=== PATIENT | female | born 1965 | race Caucasian/White ===

== ENCOUNTER → 2017-04-14 | Outpatient (CLI) | payer OTHER ==
[~2017-04-14] MED LIST: ALDA100T PO; ALPR-138 PO; AMBI5TAB PO; CIPR500T4 PO; FLAG500T PO; LORTA5 PO; LOVA20TA PO; SERT100 PO
[2017-04-14 11:03] LABS: FREE T4 0.89 NG/DL (0.76-1.46); LUTEINIZING HORMONE 10.3 mIU/mL
== END ==
LOC: CLAB 09:54
PROVIDERS: ATTEND Family Medicine
DX: E78.2 Mixed hyperlipidemia (principal); I10 Essential (primary) hypertension; R53.83 Other fatigue; L70.9 Acne, unspecified; M54.5 Low back pain; E66.9 Obesity, unspecified
CPT/HCPCS: 36415; 82670; 83001; 83002; 84146; 84270; 84403; 84410; 84439; 84443

== ENCOUNTER → 2017-05-06 | Outpatient (CLI) | payer OTHER ==
[2017-05-06 11:08] LABS: CALCIUM 9.3 MG/DL (8.5-10.1)
== END ==
LOC: CLAB 10:00
PROVIDERS: ATTEND Orthopaedic Surgery Orthopaedic Surgery of the Spine
DX: E55.9 Vitamin D deficiency, unspecified (principal); M81.8 Other osteoporosis without current pathological fracture; M81.0 Age-related osteoporosis without current pathological fracture; M85.9 Disorder of bone density and structure, unspecified
CPT/HCPCS: 36415; 82306; 82310; 84075

== ENCOUNTER → 2017-07-31 | Outpatient (CLI) | payer OTHER ==
[~2017-07-31] MED LIST changes: +ALPR0.25 PO; +BUPR150XL PO; +CYCL5TAB PO; +LAMI250T PO; +ROSU1TAB6 PO
[2017-07-31 09:31] LABS: AUTOMATED NEUTROPHIL # 6.4 TH/MM3 (1.8-7.7); BASOPHIL % 0.5 % (0.0-2.0); EOSINOPHIL # 0.1 TH/MM3 (0-0.4); HEMATOCRIT 44.2 % (35.0-46.0); HEMOGLOBIN 14.9 GM/DL (11.6-15.3); LYMPH % 20.3 % (9.0-44.0); LYMPHOCYTE # 1.8 TH/MM3 (1.0-4.8); MEAN CELL VOLUME 96.7 FL (80.0-100.0); MEAN CORPUSCULAR HEMOGLOBIN 32.7 PG (27.0-34.0); MEAN CORPUSCULAR HGB CONC 33.8 % (32.0-36.0); MEAN PLATELET VOLUME 8.2 FL (7.0-11.0); MONOCYTE # 0.7 TH/MM3 (0-0.9); NEUT % 70.2 % (16.0-70.0); PLATELET COUNT 311 TH/MM3 (150-450); RED BLOOD COUNT 4.57 MIL/MM3 (4.00-5.30); WHITE BLOOD COUNT 9.1 TH/MM3 (4.0-11.0)
[2017-07-31 09:43] LABS: PROTHROMBIN TIME - PATIENT 9.8 SEC (9.8-11.6)
[2017-07-31 09:52] LABS: WESTERGREN SEDIMENTATION RATE 4 mm/hr (0-20)
[2017-07-31 10:53] LABS: BACTERIA, URINE RARE /hpf; BLOOD, URINE NEG (NEG); GLUCOSE,URINE NEG (NEG); KETONE, URINE TRACE mg/dL (NEG); MUCUS URINE MOD /lpf (OCC); NITRITE,URINE NEG (NEG); SQUAMOUS EPITHELIAL CELL URINE 2 /hpf (0-5); URINE COLOR Amber (YELLW/STRAW); URINE LEUKOCYTE ESTERASE NEG (NEG)
[2017-07-31 10:58] LABS: BILIRUBIN, URINE NEG (NEG)
[2017-07-31 11:16] LABS: ALBUMIN 4.1 GM/DL (3.4-5.0); AST (GOT) 25 U/L (15-37); BICARBONATE 24.1 MEQ/L (21.0-32.0); BLOOD UREA NITROGEN 10 MG/DL (7-18); CALCIUM 9.2 MG/DL (8.5-10.1); CHLORIDE 107 MEQ/L (98-107); CREATININE 0.95 MG/DL (0.50-1.00); GLOMERULAR FILTRATION RATE 62 ML/MIN (>89); GLUCOSE,FASTING 67 MG/DL (74-99); SODIUM (NA) 141 MEQ/L (136-145)
[2017-07-31 11:24] LABS: ALKALINE PHOSPHATASE 53 U/L (45-117); ALT (GPT) 37 U/L (10-53); TOTAL BILIRUBIN ADULT 0.3 MG/DL (0.2-1.0); TOTAL PROTEIN 7.4 GM/DL (6.4-8.2)
--- NOTE | 2017-07-31 12:12 | RADRPT ---
EXAM DATE: 07/31/2017 11:34 AM EDT AGE/SEX: 51 years / Female INDICATIONS: Evaluate for pneumothorax, pneumonia, or other communicable disease. Pre-op Right hip r eplacement. CLINICAL DATA: This is the patient's initial encounter. Patient reports that signs and symptoms have been present for 1 day and indicates a pain score of 0/10. MEDICAL/SURGICAL HISTORY: None. None. COMPARISON: No prior exams available for comparison. FINDINGS: PA and lateral views of the chest demonstrates a mild focal changes in the left lung base. Otherwise, the lungs are clear and well aerated. There are no pleural effusions or pulmonary edema.. The cardio mediastinal contours are unremarkable. Osseous structures are intact. CONCLUSION: Focal mild parenchymal changes are noted in the left lung base. This could represent either some atel ectasis versus scarring. There are no prior studies for comparison. Otherwise, I see no significant o r acute pulmonary infiltrates. If clinically indicated, a noncontrast CT thorax could be performed fo r further evaluation. Electronically signed by: David Elena MD 07/31/2017 12:11 PM EDT
--- NOTE | 2017-07-31 12:26 | EKG ---
Date Performed: 07/31/2017 Time Performed: 09:22:12 PTAGE: 51 years EKG: Sinus rhythm NORMAL ECG NO PREVIOUS TRACING DOCTOR: Juan Pablo Ascencio Interpretating Date/Time 07/31/2017 12:24:43
== END ==
LOC: CPRE 09:00
PROVIDERS: ATTEND Orthopaedic Surgery Sports Medicine
DX: Z01.812 Encounter for preprocedural laboratory examination (principal); Z01.810 Encounter for preprocedural cardiovascular examination; Z01.811 Encounter for preprocedural respiratory examination; M16.11 Unilateral primary osteoarthritis, right hip; M25.50 Pain in unspecified joint; Z79.01 Long term (current) use of anticoagulants; Z96.60 Presence of unspecified orthopedic joint implant
CPT/HCPCS: 36415; 71046; 80053; 81001; 85025; 85610; 85652; 85730; 93005

== ENCOUNTER 2017-08-17 06:53 | Inpatient (IN) ==
[2017-08-17] MEDS ORDERED: ceFAZolin 2 GM Premix Inj 2 GM/50 ML PIGGYBACK IV.SIG ONE (08:10)
[2017-08-17] MEDS ORDERED: Vancomycin Inj 1 GM/200 ML PIGGYBACK IV.SIG ONE (08:10)
[2017-08-17] MEDS ORDERED: Dexamethasone Inj 20 MG/5 ML Vial ONE (08:10)
[2017-08-17] MEDS ORDERED: Bisacodyl 10 MG Supp RECTAL PRN (08:32)
[2017-08-17] MEDS ORDERED: Post-op Orders (for Pharmacy) OTHER STA (08:32)
[2017-08-17] MEDS ORDERED: ALPRAZolam 0.25 MG Tablet PO PRN (08:32)
[2017-08-17] MEDS ORDERED: Chlorhexidine Gluconate 2% 1 Pack (2 Cloths) TOPICAL SCH (08:45)
[2017-08-17] MEDS ORDERED: Metoprolol Tartrate 25 MG Tablet PO SCH (08:45)
[2017-08-17] MEDS ORDERED: Sodium Chlor 0.9% Inj 500 ML IV.SIG SCH (09:00)
[2017-08-17] MEDS ORDERED: Dexamethasone Inj 20 MG/5 ML Vial IV.PUSH SCH (09:01)
[2017-08-17] MEDS ORDERED: Tranexamic Acid Inj 3,000 MG in Sodium Chlor 0.9% Inj 100 ML P-ARTICULR ONE (09:12)
[2017-08-17] MEDS ORDERED: Dexamethasone Inj 20 MG/5 ML Vial IV.PUSH ONE (09:14)
[2017-08-17] MEDS ORDERED: Chlorhexidine 4% Topical 120 APPLIC/120 ML Bottle TOPICAL SCH ×2 (09:15)
[2017-08-17] MEDS ORDERED: Sodium Chlor 0.9% Inj 40 ML, Bupivacaine Liposo PF 1.3% Inj 20 ML P-ARTICULR SCH ×4 (09:15)
--- NOTE | 2017-08-17 09:27 | P.CON ---
History of Present Illness Primary Care Provider: Cristiana Robles MD Family Provider: Cristiana Robles MD Chief Complaint: Right hip pain History of Present Illness: This is a 51-year-old female who complains of right hip pain secondary to osteoarthritis. She is scheduled for operative intervention by Dr. Gustabo Lux who requested consultation to evaluate and manage medical conditions and postoperative care. Patient has history of hyperlipidemia currently controlled on Crestor, anxiety and depression manage on Xanax and Wellbutrin and toenail infection on antifungal. She takes Aldactone for acne no history of hypertension. Also denies history of diabetes mellitus recent A1c 5.5. Preop evaluation is unremarkable including normal liver function tests. Hemoglobin of 14.9 platelet count of 211 creatinine 0.95 INR 1 and chest x-ray showing focal parenchymal disease in the left lower lung likely atelectasis versus scarring. Patient has no respiratory symptoms, fever and chills. EKG tracing also reviewed with sinus rhythm. Review of Systems All other systems reviewed negative except as stated in HPI PMFSH - History History Provided By: Patient - Medical History Medical History: Medical History (Last Updated 08/04/17 @ 07:55 by Niyah Gordon RN) Anxiety Depression High cholesterol Toenail fungus Wears glasses - Surgical History Surgical History: Surgical History (Last Updated 08/04/17 @ 07:54 by Niyah Gordon RN) History of facelift Hx of abdominoplasty Hx of cholecystectomy - Family History Family History: Family History (Last Updated 08/17/17 @ 17:31 by Delano Ruvalcaba MD) Other Medical history non-contributory - Tobacco History Second Hand Smoke Exposure: No Smoking Status: Former smoker Tobacco Type: Cigarettes - Alcohol History How Often Do You Have a Drink Containing Alcohol: 2 to 3 times a week - Substance Use History Substance History: No History of Abuse - Travel History Recent Travel in the [place] Within the Last 8 Weeks: No Recent Travel Out of the Country Within the Last 8 Weeks: No Medications and Allergies Active Medications: Active Medications Hydrocodone Bitart/Acetaminophen ([place] 7.5/325) 1 tab PO Q4H PRN PRN Reason: PAIN LESS THAN 5 ON SCALE Hydrocodone Bitart/Acetaminophen ([place] 7.5/325) 2 tab PO Q6H PRN PRN Reason: PAIN SCALE 5 TO 10 Al Hydroxide/Mg Hydroxide (Milk Of Magnesia Liq) 30 ml PO BID PRN PRN Reason: Mild Constipation Alprazolam (Xanax) 0.25 mg PO Q6H PRN PRN Reason: Anxiety Aspirin (Aspirin Chew) 81 mg PO BID [facility] Bisacodyl (Dulcolax Supp) 10 mg RECTAL DAILY PRN PRN Reason: SEVERE CONSITIPATION Bupropion HCl (Wellbutrin Xl) 150 mg PO DAILY [facility] Chlorhexidine Gluconate (Chlorhexidine 2% Cloth) 3 pack TOPICAL [place] [facility] Stop: 08/20/17 08:43 Chlorhexidine Gluconate (Hibiclens 4% Topical) 1 applicatio TOPICAL ONCE [facility] Stop: 08/21/17 09:14 Chlorhexidine Gluconate (Hibiclens 4% Topical) 1 applicatio TOPICAL ONCE [facility] Stop: 08/21/17 09:14 Sodium Chloride 40 ml/ (Bupivacaine Liposome 20 ml) 0 ml P-ARTICULR [place] [facility] Stop: 08/17/17 18:00 Sodium Chloride 40 ml/ (Bupivacaine Liposome 20 ml) 0 ml P-ARTICULR ONCE [facility] Dexamethasone Sodium Phosphate (Decadron Inj) 10 mg IV.PUSH ONCE ONE Stop: 08/17/17 09:02 Dexamethasone Sodium Phosphate (Decadron Inj) 10 mg IV.PUSH ONCE ONE Stop: 08/17/17 09:15 Diphenhydramine HCl (Benadryl) 25 mg PO Q6H PRN PRN Reason: ITCHING Hydromorphone HCl (Dilaudid Pf Inj) 1 mg IV.PUSH Q3H PRN PRN Reason: BREAKTHROUGH PAIN Cefazolin Sodium/Dextrose (Ancef 2 Gm Premix Inj) 2 gm in 50 mls @ 100 mls/hr IV.SIG Q6H [facility] Stop: 08/17/17 21:29 Lactated Ringer's (Lr 1000 Ml Inj) 1,000 mls @ 80 mls/hr IV.CONT .[id number] [facility] Lactated Ringer's (Lr 1000 Ml Inj) 1,000 mls @ 30 mls/hr IV.SIG .Q24H [facility] Stop: 08/20/17 08:43 Last Admin: 08/17/17 08:55 Dose: 30 mls/hr Sodium Chloride (Ns Inj) 500 mls @ 30 mls/hr IV.SIG .Q10H [facility] Stop: 08/20/17 08:43 Cefazolin Sodium/Dextrose (Ancef 2 Gm Premix Inj) 2 gm in 50 mls @ 100 mls/hr IV.SIG [place] [facility] Stop: 08/21/17 09:59 Tranexamic Acid / Sodium (Chloride) 100 mls @ 200 mls/hr IV.SIG ONCE [facility] Stop: 08/18/17 09:59 Vancomycin/Sodium Chloride (Vancomycin Inj) 1 gm in 200 mls @ 200 mls/hr IV.SIG [place] [facility] Stop: 08/21/17 09:59 Cefazolin Sodium/Dextrose (Ancef 2 Gm Premix Inj) 2 gm in 50 mls @ 100 mls/hr IV.SIG [place] [facility] Stop: 08/21/17 09:59 Tranexamic Acid 1,096 mg/ (Sodium Chloride) 110.96 mls @ 200 mls/hr IV.SIG ONCE [facility] Stop: 08/18/17 09:59 Lactulose (Lactulose Liq) 30 ml PO DAILY PRN PRN Reason: SEVERE CONSITIPATION Metoprolol Tartrate (Lopressor) 25 mg PO [place] [facility] Stop: 08/20/17 08:43 Miscellaneous Information (Misc Post-Op Orders (For Pharmacy)) 0 each OTHER STAT STA Stop: 08/17/17 08:33 Multivitamins/Minerals (Theragran-M) 1 tab PO BID [facility] Stop: 10/16/17 08:59 Non-Formulary Medication (Rosuvastatin [Rosuvastatin]) 10 mg PO DAILY [facility] Ondansetron HCl (Zofran Inj) 4 mg IV.PUSH Q6H PRN PRN Reason: NAUSEA OR VOMITING Povidone Iodine (Betadine 5% Antisepsis Kit) 1 applicatio EACH NARE [place] [facility] Stop: 08/20/17 08:43 Povidone Iodine (Betadine 7.5% Scrub) 1 applicatio TOPICAL ONCE [facility] Stop: 08/21/17 09:59 Povidone Iodine (Betadine 7.5% Scrub) 1 applicatio TOPICAL ONCE [facility] Stop: 08/21/17 09:59 Senna/Docusate Sodium (Pily-Colace) 1 tab PO BID [facility] Sennosides (Senokot) 17.2 mg PO BID PRN PRN Reason: Moderate Constipation Sodium Chloride (Ns Flush) 2 ml IV.FLUSH BID [facility] Sodium Chloride (Ns Flush) 2 ml IV.FLUSH PRN PRN PRN Reason: FLUSH AFTER USING IV ACCESS Spironolactone (Aldactone) 100 mg PO DAILY [facility] Terbinafine HCl (Lamisil) 250 mg PO DAILY [facility] Zolpidem Tartrate (Ambien) 5 mg PO HS PRN PRN Reason: INSOMNIA Allergies Allergy/AdvReac Type Severity Reaction Status Date / Time No Known Allergies Allergy Unverified 08/04/17 07:55 Home Medications Medication Instructions Recorded Confirmed Type alprazolam 0.25 mg PO Q6H PRN 08/04/17 08/04/17 History bupropion HCl [Wellbutrin XL] 150 mg PO DAILY 08/04/17 08/04/17 History cyclobenzaprine 5 mg PO TID PRN 08/04/17 08/04/17 History rosuvastatin 10 mg PO DAILY 08/04/17 08/04/17 History spironolactone [Aldactone] 100 mg PO DAILY 08/04/17 08/04/17 History terbinafine HCl 250 mg PO DAILY 08/04/17 08/04/17 History Physical Exam Vital signs: Vital Signs 08/17/17 08:50 Temperature 98.2 F Pulse Rate 94 H Respiratory Rate 18 Blood Pressure 130/88 Intake & Output 08/16/17 08/17/17 08/17/17 18:59 06:59 18:59 Weight 73.1 kg Other: Weight On Admission 73.1 kg Narrative: GENERAL: This is a well-nourished, well-developed patient, in no apparent distress. Skin is warm no rash HEENT normocephalic atraumatic pupils reactive to light Neck no JVD no bruit CARDIOVASCULAR: Regular rate and rhythm without murmurs, gallops, or rubs. RESPIRATORY: Clear to auscultation. Breath sounds equal bilaterally. No wheezes , rales, or rhonchi. GASTROINTESTINAL: Abdomen soft, non-tender, nondistended. Normal active bowel sounds MUSCULOSKELETAL: Extremities without clubbing, cyanosis, or edema. NEURO: Alert & Oriented x4 to person, place, time, situation. Moves all ext x4 - Urinary Catheter Management Indwelling Urethral Catheter Cath placed during this visit: yes Reason for continuing: Hourly intake/output Insertion date: 08/17/17 Insertion time: 09:49 Assessment and Plan - Plan This is a 51-year-old female who complains of right hip pain secondary to osteoarthritis. She is scheduled for operative intervention by Dr. Gustabo Lux who requested consultation to evaluate and manage medical conditions and postoperative care. Orders in the [facility] reviewed. Agree with pain management with Lortab and IV Dilaudid. She will also be on DVT prophylaxis with aspirin and SCD. Wound care, incentive spirometry and PT evaluation Hyperlipidemia currently controlled on Crestor and will be continued Anxiety and depression managed on Xanax and Wellbutrin both already ordered. Toenail infection on antifungal. Monitor LFTs Acne continue Aldactone no history of hypertension. Denies history of diabetes mellitus recent A1c 5.5. Discussed Condition With: Patient and family Discharge Planning: Per orthopedic surgery likely home health care PT
[2017-08-17] MEDS ORDERED: Tranexamic Acid Inj 0 MG in Sodium Chlor 0.9% Inj 100 ML IV.SIG SCH (10:00)
[2017-08-17] MEDS ORDERED: SODIUM CHLOR 0.9% IV.SIG SCH (10:00)
[2017-08-17] MEDS ORDERED: Vancomycin Inj 1 GM/200 ML PIGGYBACK IV.SIG SCH (10:00)
[2017-08-17] MEDS ORDERED: ceFAZolin 2 GM Premix Inj 2 GM/50 ML PIGGYBACK IV.SIG SCH ×2 (10:00)
[2017-08-17] MEDS ORDERED: TRANEXAMIC ACID IV.SIG SCH (10:00)
--- NOTE | 2017-08-17 11:14 | XR ---
EXAM DATE: 08/17/2017 11:12 AM EDT AGE/SEX: 51 years / Female INDICATIONS: Right total hip replacement. CLINICAL DATA: This is the patient's initial encounter. Patient reports that signs and symptoms have been present for 1 day and indicates a pain score of Nonresponsive. MEDICAL/SURGICAL HISTORY: None. None. COMPARISON: No prior exams available for comparison. FINDINGS: The patient is status post a total hip arthroplasty with a bipolar prosthesis. Prosthesis is [place]. Alignment is anatomic in the AP projection. A fracture is not appreciated. CONCLUSION: Anatomic alignment. Hitesh Stevenson MD FACR Electronically signed by: Hitesh Stevenson MD 08/17/2017 11:13 AM EDT
[2017-08-17] MEDS ORDERED: *Meperidine Inj 25 MG/ML Vial PERIprocedural Use ONLY ONE (11:34)
[2017-08-17] MEDS ORDERED: fentaNYL Citrate Inj 100 MCG/2 ML Ampul ONE ×2 (11:35→11:36)
--- NOTE | 2017-08-17 11:43 | MP ---
cc: Gustabo Lux MD DATE OF OPERATION: 08/17/2017 DATE OF PROCEDURE: 08/17/2017. PREOPERATIVE DIAGNOSIS: Right hip osteoarthritis. POSTOPERATIVE DIAGNOSIS: Right hip osteoarthritis. PROCEDURE PERFORMED: Right total hip arthroplasty. SURGEON: Gustabo Lux MD MANUFACTURING QUALITY ENGINEER: KEENAN Avilez. ANESTHESIA: General. ESTIMATED BLOOD LOSS: 200 mL COMPLICATIONS: None. IMPLANTS USED: DePuy Corail size 9 Press-Fit standard offset femoral stem, size 48 solid [place] Gription cup, 32 mm [place] Chrome head, +1 neck. JUSTIFICATION: The patient is a 51-year-old female with history of severe osteoarthritis involving the right hip joint. She has severe, disabling pain with standing, walking, ambulation or weight-bearing activities and severe pain at rest. She has failed greater than three months of nonoperative conservative treatment to include medication therapy, injections, ambulatory assistive aids, home exercise program, activity modification and weight loss. X-rays of the right hip reveal severe end-stage osteoarthritis with joint space narrowing, subchondral sclerosis, subchondral cysts, osteophyte formation and subluxation. The patient was counseled as to the risks, benefits and alternatives to a total hip arthroplasty. The risks which were discussed include but are not limited to anesthesia, bleeding, infection, damage to nerves, blood vessels, pain, stiffness, fracture, dislocation, leg length discrepancy, blood clots, pulmonary embolism and even . The patient's pain is severe. She favored the benefits over the risks. She wished to proceed with surgery. PROCEDURE IN DETAIL: Written consent was obtained. The patient was identified by name, taken to the operating room, and placed supine on the operating table. General anesthesia was administered as well as 2 grams of IV Ancef and 1 gram of IV vancomycin. The right and left feet were placed in padded traction boots. The right hip and right lower extremity prepped and draped using alcohol, Hibiclens solution and ChloraPrep solution. After a timeout was performed, a longitudinal incision was made over the anterolateral aspect of the right hip. The fascial layer was incised. Dissection was carried over tensor fascia flavio, beneath the rectus femoris to allow exposure of the anterior capsule. Capsulotomy incision was performed. Oscillating saw was used to perform a femoral neck cut. The osteophytic femoral head and neck component was removed. Sequential reaming began at size 43, was carried through to size 48. Subsequently, a solid [place] Gription 48 mm cup was implanted in approximately 45 degrees of abduction and 10 degrees of anteversion. There was good purchase and fixation with insertion of the cup. A screw hole eliminator was placed, followed by a neutral liner. The liner was impacted in place and tested for stability. Attention was turned to the femur where the leg was externally rotated extended and adducted. The capsule was released off the superior aspect and inner aspect of the greater trochanter to allow for elevation and lateralization of the femur. A box cutting osteotome was used to gain entrance into the intramedullary canal of the femur and was followed by canal finder and sequential broaching up to size 9. A calcar planer was used to plane the calcar. Trial head and neck combinations were evaluated and the final components implanted. With the current components, the leg could achieve external rotation of 70 degrees and extension all the way down to the ground without evidence of anterior instability or impingement. Fluoroscopic imaging showed appropriate implantation of components. The surgical wound was thoroughly irrigated with sterile saline pulse lavage antibiotic impregnated solution. With final components implanted, the fascial layer was closed with #1 Vicryl suture, the subcutaneous layer with 2-0 Vicryl suture. The skin was closed with Dermabond. Sterile dressing applied. The patient tolerated the procedure with no intraoperative complications noted. Saleem Ogden, physician research assistant certified, was present for the entire procedure to include the patient positioning and the procedure itself. The medical necessity of a physician research assistant was indicated in this case due to complexity of the procedure. He assisted with appropriate manipulation of the leg and retraction of muscle, tendon, bone and neurovascular structures. He assisted with preparation of bone and also implantation of the prosthetic replacement. MD LEIA Amador/ZANE , 11:03 AM , 11:41 AM
[2017-08-17] MEDS ORDERED: *morphine SULFATE 10 MG/ML PERIprocedure ONLY ONE ×2 (11:59→15:24)
[2017-08-17] MEDS ORDERED: Phenylephrine/NS 1000 MCG/10ML Syringe IV.PUSH ONE (12:00)
[2017-08-17] MEDS ORDERED: Neostigmine Inj 5 MG/5 ML Syringe IV.PUSH ONE (12:00)
[2017-08-17] MEDS ORDERED: Lidocaine PF 1% Inj 5 ML Syringe INFILTRATN ONE (12:00)
[2017-08-17] MEDS ORDERED: Glycopyrrolate Inj 1 MG/5 ML Syringe IV.PUSH ONE (12:00)
--- NOTE | 2017-08-17 12:35 | XR ---
EXAM DATE: 08/17/2017 12:33 PM EDT AGE/SEX: 51 years / Female INDICATIONS: Post-op right hip. CLINICAL DATA: This is the patient's subsequent encounter. Patient reports that signs and symptoms h ave been present for 2 days and indicates a pain score of Nonresponsive. MEDICAL/SURGICAL HISTORY: None. . Right Hip Replacement. COMPARISON: No prior exams available for comparison. FINDINGS: Status post placement of a right hip prosthesis. There is good position and alignment of the prosthes is with the bony structures. The hardware is grossly intact. CONCLUSION: Good position and alignment on this postoperative study. Electronically signed by: David Elena MD 08/17/2017 12:34 PM EDT
[2017-08-17] MEDS: Senna/Docusate Sodium 8.6/50 MG Tablet PO SCH ×2 (15:28→21:40)
[2017-08-17] MEDS: Multivitamin/Minerals Therapeutic Tablet PO SCH ×2 (15:29→21:40)
[2017-08-17] MEDS: buPROPion 150 MG 12 HR Tablet PO SCH (15:30)
[2017-08-17] MEDS: ceFAZolin 2 GM Premix Inj 2 GM/50 ML PIGGYBACK IV.SIG SCH ×2 (16:59→22:59)
[2017-08-17] MEDS ORDERED: *Ondansetron Inj 4 MG/2 ML Vial PERIprocedural Use ONLY ONE (17:13)
[2017-08-17] MEDS ORDERED: Zolpidem Tartrate 5 MG Tablet PO PRN (21:00)
[2017-08-18] MEDS: ceFAZolin 2 GM Premix Inj 2 GM/50 ML PIGGYBACK IV.SIG SCH (04:22)
[2017-08-18] MEDS: HYDROmorphone PF Inj 2 MG/ML Vial IV.PUSH PRN ×3 (06:04→20:12)
--- NOTE | 2017-08-18 08:09 | P.PNOP ---
Subjective Interval history: pain slowly improving Physical Exam Vital signs: Vital Signs 08/17/17 08:50 08/17/17 11:21 08/17/17 11:30 Temperature 98.2 F 97.7 F Pulse Rate 94 H 98 H 92 H Respiratory Rate 18 20 16 Blood Pressure 130/88 133/94 H 124/88 Pulse Oximetry 95 96 08/17/17 11:45 08/17/17 12:00 08/17/17 12:15 Temperature Pulse Rate 86 92 H 81 Respiratory Rate 17 18 15 Blood Pressure 142/80 H 135/80 122/77 Pulse Oximetry 97 97 98 08/17/17 12:30 08/17/17 13:00 08/17/17 14:00 Temperature Pulse Rate 87 90 100 H Respiratory Rate 17 16 13 Blood Pressure 124/81 123/79 112/71 Pulse Oximetry 96 98 99 08/17/17 15:00 08/17/17 15:32 08/17/17 16:00 Temperature Pulse Rate 95 H 97 H Respiratory Rate 15 15 18 Blood Pressure 116/79 121/78 Pulse Oximetry 98 98 08/17/17 16:05 08/17/17 17:00 08/17/17 18:00 Temperature 98 F 98.0 F Pulse Rate 100 H 72 Respiratory Rate 20 18 Blood Pressure 120/77 114/67 Pulse Oximetry 99 99 97 08/17/17 18:56 08/17/17 19:18 08/18/17 00:35 Temperature 97.5 F L Pulse Rate 95 H Respiratory Rate 18 18 18 Blood Pressure 119/80 Pulse Oximetry 96 08/18/17 01:19 08/18/17 02:30 08/18/17 06:26 Temperature 97.5 F L 98.0 F Pulse Rate 99 H 87 Respiratory Rate 18 18 18 Blood Pressure 113/71 122/78 Pulse Oximetry 97 96 Intake & Output 08/17/17 08/18/17 08/18/17 18:59 06:59 18:59 Intake Total 300 / 300 410 / 410 Output Total 500 / 500 1475 / 1475 Balance -200 / -200 -1065 / -1065 Weight 73.1 kg 73.1 kg Intake: IV 50 / 50 50 / 50 Ancef 2 GM Premix Inj 2 gm In 50 / 50 50 / 50 50 ml @ 100 mls/hr IV.SIG Q6H [facility] Rx#:[id number] Oral 250 / 250 360 / 360 Output: Urine Amount (Catheter) 500 / 500 1475 / 1475 Indwelling Urethral Catheter 500 / 500 1475 / 1475 Other: Date of Last Bowel Movement 08/17/17 # Bowel Movements 0 Weight On Admission 73.1 kg Narrative: in bed, nad thigh soft dressing c/d/i neg anna nvi - Constitutional no acute distress - Urinary Catheter Management Indwelling Urethral Catheter Cath placed during this visit: yes, but has since been removed by the nurse Reason for continuing: Continue criteria not met Insertion date: 08/17/17 Insertion time: 09:49 Removal date: 08/18/17 Removal time: 06:10 Results - Labs Laboratory Results - last 24 hr 08/17/17 07:50 Blood Type A Negative Blood Type Recheck Required Antibody Screen Negative - Imaging Impressions Hip X-Ray 08/17/17 00:00 CONCLUSION: Anatomic alignment. Hitesh Stevenson MD FACR Hip X-Ray 08/17/17 08:31 CONCLUSION: Good position and alignment on this postoperative study. Assessment and Plan - Ortho Post Op Day # 1 - Assessment and Plan s/p R DELICIA wbat ok to maintain dressing unless saturated asa 81mg bid d/c planning home with [facility] and pt cleared today if does well in PT f/up dr. ricketts 2 weeks
--- NOTE | 2017-08-18 08:10 | P.DCO ---
- Physical Therapy Physical Therapy: Gait training, Safety evaluation Hip: Total hip, Protocol: Right, Progress to weight bearing Right Lower Extremity Weight Bearing: Weight bearing as tolerated - Nursing RN: 3 days/week x 2 weeks Nursing: Dressing changes Dressing changes: Daily dressing change - Certification Need for Home Health services: I have seen patient Humaira Berg on 08/18/17. My clinical findings support the need for the requested home health care services because: Need for Home Health Services: Limited ability to care for self, High risk of falls Homebound Certification: I certify that my clinical findings support that this patient is homebound because: Homebound Certification: Post-op weakness, Unsteady gait/balance
[2017-08-18] MEDS: Senna/Docusate Sodium 8.6/50 MG Tablet PO SCH ×2 (09:07→20:14)
[2017-08-18] MEDS: buPROPion 150 MG 12 HR Tablet PO SCH (09:07)
[2017-08-18] MEDS: Multivitamin/Minerals Therapeutic Tablet PO SCH ×2 (09:08→20:14)
[2017-08-18 09:50] LABS: Hemoglobin 12.7 gm/dL (11.6-15.3)
[2017-08-18 10:09] LABS: Calcium 8.2 mg/dL (8.5-10.1); Carbon Dioxide 30.1 meq/L (21.0-32.0); Potassium 3.8 meq/L (3.5-5.1)
--- NOTE | 2017-08-18 11:08 | P.PN ---
Subjective Interval history: Follow-up hip surgery. Complaining of surgical pain. Has been out of bed already. Tolerating meals. Physical Exam Vital signs: Vital Signs 08/17/17 11:21 08/17/17 11:30 08/17/17 11:45 Temperature 97.7 F Pulse Rate 98 H 92 H 86 Respiratory Rate 20 16 17 Blood Pressure 133/94 H 124/88 142/80 H Pulse Oximetry 95 96 97 08/17/17 12:00 08/17/17 12:15 08/17/17 12:30 Temperature Pulse Rate 92 H 81 87 Respiratory Rate 18 15 17 Blood Pressure 135/80 122/77 124/81 Pulse Oximetry 97 98 96 08/17/17 13:00 08/17/17 14:00 08/17/17 15:00 Temperature Pulse Rate 90 100 H 95 H Respiratory Rate 16 13 15 Blood Pressure 123/79 112/71 116/79 Pulse Oximetry 98 99 98 08/17/17 15:32 08/17/17 16:00 08/17/17 16:05 Temperature Pulse Rate 97 H Respiratory Rate 15 18 Blood Pressure 121/78 Pulse Oximetry 98 99 08/17/17 17:00 08/17/17 18:00 08/17/17 18:56 Temperature 98 F 98.0 F Pulse Rate 100 H 72 Respiratory Rate 20 18 18 Blood Pressure 120/77 114/67 Pulse Oximetry 99 97 08/17/17 19:18 08/18/17 00:35 08/18/17 01:19 Temperature 97.5 F L 97.5 F L Pulse Rate 95 H 99 H Respiratory Rate 18 18 18 Blood Pressure 119/80 113/71 Pulse Oximetry 96 97 08/18/17 02:30 08/18/17 06:26 08/18/17 08:00 Temperature 98.0 F 97.8 F Pulse Rate 87 81 Respiratory Rate 18 18 17 Blood Pressure 122/78 111/64 Pulse Oximetry 96 97 08/18/17 10:36 Temperature Pulse Rate Respiratory Rate Blood Pressure Pulse Oximetry 97 Intake & Output 08/17/17 08/18/17 08/18/17 18:59 06:59 18:59 Intake Total 300 / 300 410 / 410 300 / 300 Output Total 500 / 500 1475 / 1475 260 / 260 Balance -200 / -200 -1065 / -1065 40 / 40 Weight 73.1 kg 73.1 kg Intake: IV 50 / 50 50 / 50 300 / 300 LR 1000 mL Inj 1,000 ML @ 80 0 / 0 mls/hr IV.CONT .[id number] [facility] Rx# :[id number] LR 1000 mL Inj 1,000 ML @ 30 0 / 0 mls/hr IV.SIG .Q24H [facility] Rx#: [id number] Ancef 2 GM Premix Inj 2 gm In 50 / 50 50 / 50 50 / 50 50 ml @ 100 mls/hr IV.SIG Q6H [facility] Rx#:[id number] Oral 250 / 250 360 / 360 Output: Urine 260 / 260 Urine Amount (Catheter) 500 / 500 1475 / 1475 Indwelling Urethral Catheter 500 / 500 1475 / 1475 Other: # Voids 1 Date of Last Bowel Movement 08/17/17 # Bowel Movements 0 Weight On Admission 73.1 kg Narrative: GENERAL: This is a well-nourished, well-developed patient, in no apparent distress. Skin is warm no rash CARDIOVASCULAR: Regular rate and rhythm without murmurs, gallops, or rubs. RESPIRATORY: Clear to auscultation. Breath sounds equal bilaterally. No wheezes , rales, or rhonchi. GASTROINTESTINAL: Abdomen soft, non-tender, nondistended. Normal active bowel sounds MUSCULOSKELETAL: Extremities without clubbing, cyanosis, or edema. NEURO: Alert & Oriented x4 to person, place, time, situation. Moves all ext x4 - Urinary Catheter Management Indwelling Urethral Catheter Cath placed during this visit: yes, but has since been removed by the nurse Reason for continuing: Continue criteria not met Insertion date: 08/17/17 Insertion time: 09:49 Removal date: 08/18/17 Removal time: 06:10 Results - Labs CBC & Chem 7: 08/18/17 09:27 08/18/17 09:27 Laboratory Results - last 24 hr 08/18/17 08/18/17 09:27 09:27 Hgb 12.7 Hct 38.0 Sodium 139 Potassium 3.8 Chloride 103 Carbon Dioxide 30.1 Anion Gap 6 BUN 8 Creatinine 0.89 Estimated GFR 67 L Random Glucose 122 H Calcium 8.2 L - Imaging Impressions Hip X-Ray 08/17/17 00:00 CONCLUSION: Anatomic alignment. Hitesh Stevenson MD FACR Hip X-Ray 08/17/17 08:31 CONCLUSION: Good position and alignment on this postoperative study. Assessment and Plan - Plan This is a 51-year-old female who complains of right hip pain secondary to osteoarthritis s/p repair by Dr. Gustabo Lux. Stable ct pain management with Lortab and IV Dilaudid. She will also be on DVT prophylaxis with aspirin and SCD. Wound care, incentive spirometry and PT evaluation Hyperlipidemia currently controlled on Crestor Anxiety and depression managed on Xanax and Wellbutrin Toenail infection on antifungal. Monitor LFTs Acne continue Aldactone no history of hypertension. Denies history of diabetes mellitus recent A1c 5.5. Discharge Planning: Per orthopedic surgery likely home health care PT
[2017-08-19 06:50] LABS: Hematocrit 33.2 % (35.0-46.0); Hemoglobin 11.4 gm/dL (11.6-15.3)
[2017-08-19] MEDS: Senna/Docusate Sodium 8.6/50 MG Tablet PO SCH (08:39)
[2017-08-19] MEDS: Multivitamin/Minerals Therapeutic Tablet PO SCH (08:40)
[2017-08-19] MEDS: buPROPion 150 MG 12 HR Tablet PO SCH (08:41)
--- NOTE | 2017-08-19 10:31 | P.PNOP ---
Subjective Interval history: still sore in the hip and thigh operative side. Physical Exam Vital signs: Vital Signs 08/18/17 10:36 08/18/17 11:19 08/18/17 12:00 Temperature 97.5 F L Pulse Rate 92 H Respiratory Rate 18 18 Blood Pressure 113/74 Pulse Oximetry 97 96 08/18/17 16:00 08/18/17 20:00 08/18/17 20:42 Temperature 98.4 F 98.3 F Pulse Rate 95 H 101 H Respiratory Rate 18 18 18 Blood Pressure 112/64 137/85 Pulse Oximetry 95 98 08/19/17 00:00 08/19/17 00:27 08/19/17 01:07 Temperature 99.6 F Pulse Rate 125 H Respiratory Rate 18 18 18 Blood Pressure 127/76 Pulse Oximetry 97 08/19/17 05:09 08/19/17 06:39 08/19/17 08:00 Temperature 97.9 F Pulse Rate 96 H Respiratory Rate 18 18 18 Blood Pressure 115/74 Pulse Oximetry 95 Intake & Output 08/18/17 08/19/17 08/19/17 18:59 06:59 18:59 Intake Total 1500 / 1500 1000 / 1000 Output Total 260 / 260 Balance 1240 / 1240 1000 / 1000 Intake: IV 300 / 300 1000 / 1000 LR 1000 mL Inj 1,000 ML @ 80 0 / 0 1000 / 1000 mls/hr IV.CONT .[id number] LUIS MANUEL Rx# :[id number] LR 1000 mL Inj 1,000 ML @ 30 0 / 0 mls/hr IV.SIG .Q24H LUIS MANUEL Rx#: [id number] Ancef 2 GM Premix Inj 2 gm In 50 / 50 50 ml @ 100 mls/hr IV.SIG Q6H LUIS MANUEL Rx#:[id number] Oral 1200 / 1200 Output: Urine 260 / 260 Other: # Voids 3 Date of Last Bowel Movement 08/17/17 08/17/17 Narrative: in bed, nad dressing c/d/i mild ecchymosis thigh soft neg homans nvi - Constitutional no acute distress - Urinary Catheter Management Indwelling Urethral Catheter Cath placed during this visit: yes, but has since been removed by the nurse Reason for continuing: Continue criteria not met Insertion date: 08/17/17 Insertion time: 09:49 Removal date: 08/18/17 Removal time: 06:10 Results - Labs CBC & Chem 7: 08/19/17 06:24 08/18/17 09:27 Laboratory Results - last 24 hr 08/19/17 06:24 Hgb 11.4 L Hct 33.2 L Assessment and Plan - Ortho Post Op Day # 2 - Assessment and Plan s/p R DELICIA wbat ok to maintain dressing unless saturated asa 81mg bid ice d/c planning home with [facility] and pt cleared today f/up dr. ricketts 2 weeks
--- NOTE | 2017-08-19 13:18 | P.PN ---
Subjective Interval history: Follow-up hip surgery. Pain is improving. She feels tired but wants to go home. She is passing gas no BM denies abdominal pain and nausea Physical Exam Vital signs: Vital Signs 08/18/17 16:00 08/18/17 20:00 08/18/17 20:42 Temperature 98.4 F 98.3 F Pulse Rate 95 H 101 H Respiratory Rate 18 18 18 Blood Pressure 112/64 137/85 Pulse Oximetry 95 98 08/19/17 00:00 08/19/17 00:27 08/19/17 01:07 Temperature 99.6 F Pulse Rate 125 H Respiratory Rate 18 18 18 Blood Pressure 127/76 Pulse Oximetry 97 08/19/17 05:09 08/19/17 06:39 08/19/17 08:00 Temperature 97.9 F Pulse Rate 96 H Respiratory Rate 18 18 Blood Pressure 115/74 Pulse Oximetry 95 08/19/17 12:00 08/19/17 13:00 Temperature 97.9 F Pulse Rate 106 H Respiratory Rate 19 18 Blood Pressure 119/65 Pulse Oximetry 96 Intake & Output 08/18/17 08/19/17 08/19/17 18:59 06:59 18:59 Intake Total 1500 / 1500 1000 / 1000 Output Total 260 / 260 Balance 1240 / 1240 1000 / 1000 Intake: IV 300 / 300 1000 / 1000 LR 1000 mL Inj 1,000 ML @ 80 0 / 0 1000 / 1000 mls/hr IV.CONT .[id number] LUIS MANUEL Rx# :[id number] LR 1000 mL Inj 1,000 ML @ 30 0 / 0 mls/hr IV.SIG .Q24H LUIS MANUEL Rx#: [id number] Ancef 2 GM Premix Inj 2 gm In 50 / 50 50 ml @ 100 mls/hr IV.SIG Q6H LUIS MANUEL Rx#:[id number] Oral 1200 / 1200 Output: Urine 260 / 260 Other: # Voids 3 Date of Last Bowel Movement 08/17/17 08/17/17 Narrative: GENERAL: This is a well-nourished, well-developed patient, in no apparent distress. CARDIOVASCULAR: Regular rate and rhythm without murmurs, gallops, or rubs. RESPIRATORY: Clear to auscultation. Breath sounds equal bilaterally. No wheezes , rales, or rhonchi. GASTROINTESTINAL: Abdomen soft, Normal active bowel sounds MUSCULOSKELETAL: Extremities without clubbing, cyanosis, or edema. Dry dressing NEURO: Alert & Oriented x4 to person, place, time, situation. Moves all ext x4 - Urinary Catheter Management Indwelling Urethral Catheter Cath placed during this visit: yes, but has since been removed by the nurse Reason for continuing: Continue criteria not met Insertion date: 08/17/17 Insertion time: 09:49 Removal date: 08/18/17 Removal time: 06:10 Results - Labs CBC & Chem 7: 08/19/17 06:24 08/18/17 09:27 Laboratory Results - last 24 hr 08/19/17 06:24 Hgb 11.4 L Hct 33.2 L Assessment and Plan - Plan This is a 51-year-old female who complains of right hip pain secondary to osteoarthritis s/p repair by Dr. Gustabo Lux. Stable ct pain management with Lortab and IV Dilaudid. She will also be on DVT prophylaxis with aspirin and SCD. Wound care, incentive spirometry and PT evaluation Mild sinus tachycardia secondary to pain. Anemia secondary to acute blood loss. Hemoglobin 11.4. Hemodynamically stable. Continue to monitor hyperlipidemia currently controlled on Crestor Anxiety and depression managed on Xanax and Wellbutrin Toenail infection on antifungal. Monitor LFTs Acne continue Aldactone no history of hypertension. Denies history of diabetes mellitus recent A1c 5.5. Discharge Planning: Per orthopedic surgery likely home health care PT
--- NOTE | 2017-09-08 09:56 | MD ---
cc: Gustabo Lux MD DATE OF DISCHARGE: 08/19/2017 ADMITTING DIAGNOSIS: Severe degenerative osteoarthritis, right hip. DISCHARGE DIAGNOSIS: Severe degenerative osteoarthritis, right hip. HISTORY OF PRESENT ILLNESS: Ms. Berg is a 51-year-old female who is a patient of Dr[facility]. She is currently being treated for severe and progressive right hip pain that is inhibiting her activities of daily living and her ability to work. She states the pain is a severe aching sensation aggravated by weightbearing activities. She has no alleviating factors, although in the past she has tried medications, assistive devices, physical therapy, home exercise program without relief of the symptoms. She does have x-ray evidence of severe degenerative osteoarthritis of the right hip. While in the office, the patient was counseled on her diagnosis and treatment options. Risks, benefits, and indications all were discussed. The patient did elect to proceed with surgical intervention to include a right total hip arthroplasty. Date of surgery 08/17/2017, right total hip arthroplasty, anterior approach. Postop after surgery, the patient was admitted to [facility] [place] where she received appropriate medical management, pain control, with DVT prophylaxis, as well as physical therapy. DISCHARGE: Once being discharged from the hospital, the patient is cleared to go home. She will receive home health care and home physical therapy. She is in stable condition. She may weight bear as tolerated with anterior hip precautions. She has been instructed on wound care management. She has been provided prescriptions for pain control as well as DVT prophylaxis medication. She has also been provided a followup appointment in approximately 2 weeks from her date of surgery. The patient has asked appropriate questions which have been answered. The patient was cleared for discharge. Dictated by KEENAN Mejia Gustabo Lux MD JWM/ABBEY , 10:37 AM , 10:50 AM
== END 2017-08-19 13:06 | disposition home health service (06) ==
LOC: HSDI 06:53 → EDSTATUS 10:00 → N06 17:33
PROVIDERS: ADMIT Orthopaedic Surgery Sports Medicine; ATTEND Orthopaedic Surgery Sports Medicine